=== PATIENT | female | born 1990 | race Caucasian/White ===

== ENCOUNTER 2018-10-11 09:07 | Emergency (ER) | payer SELFPAY ==
[2018-10-11 09:16] VITALS: BP 138/91
[2018-10-11] MEDS ORDERED: PANTOPRAZOLE SODIUM 40 MG VIAL IV ONE (09:30)
[2018-10-11] MEDS ORDERED: ONDANSETRON HCL INJ/PF 4 MG/2 ML SDV IV ONE (09:30)
[2018-10-11] MEDS ORDERED: THIAMINE HCL 100 MG, FOLIC ACID 1 MG in NORMAL SALINE 250 ML IV ONE (09:30)
[2018-10-11] MEDS ORDERED: NORMAL SALINE 1000 ML 1,000 ML IV ONE (09:30)
--- NOTE | 2018-10-11 09:30 | ER Document Report ---
ED Medical Screen (RME) - General Chief Complaint: Vomiting Stated Complaint: VOMITING Time Seen by Provider: 10/11/18 09:19 TRAVEL OUTSIDE OF THE [place] IN LAST 30 DAYS: No - HPI Notes: 10/11/18 09:34 28-year-old female to the emergency department with complaints of vomiting blood since early this morning. She states that she uses alcohol regularly typically back up. Her last drink was about an hour ago. She states that she is vomited before with alcohol but she is never had michel hematemesis before. She denies any fevers, chills, diarrhea, bloody diarrhea, headache. She does admit to chest pain particularly worse when she is vomiting and she feels a little bit more short of breath when she is vomiting. Patient smokes. She states that she "used to dabble and meth and heroin" but she has not used in some time. She states that her last shot of vodka was 1 hour ago. She states that walking helps her stop vomiting. She admits that she has gone through alcohol withdrawal before but she is unsure if she had a seizure when she is been going through alcohol withdrawal. Patient has a nontender belly on my exam she is obviously intoxicated. Will order labs and thiamine and folic acid as well as bolus of fluids as well as Zofran and Protonix. I performed a medical screening exam on this patient and will have me inside provider evaluate patient further. 10/11/18 09:36 - Related Data Smoking: Cigarettes Frequency of alcohol use: Heavy Drug Abuse: Heroin, Methamphetamine Allergies/Adverse Reactions: No Known Allergies Allergy (Verified 10/11/18 09:10) Past Medical History - General Information source: Patient - Social History Frequency of alcohol use: Heavy Drug Abuse: Heroin, Methamphetamine Physical Exam - Vital signs Vitals: Temp Pulse Resp BP Pulse Ox 98.4 F 121 H 18 138/91 H 97 10/11/18 09:11 10/11/18 09:11 10/11/18 09:11 10/11/18 09:11 10/11/18 09:11 Course - Vital Signs Vital signs: Temp Pulse Resp BP Pulse Ox 98.4 F 121 H 18 138/91 H 97 10/11/18 09:11 10/11/18 09:11 10/11/18 09:11 10/11/18 09:11 10/11/18 09:11
[2018-10-11 09:45] LABS: APPEARANCE,URINE CLOUDY; BILIRUBIN,URINE NEGATIVE (NEGATIVE); COLOR,URINE YELLOW; GLUCOSE, URINE NEGATIVE (NEGATIVE); KETONES,URINE 80 mg/dL (NEGATIVE); LEUKOCYTE ESTERASE,URINE TRACE (NEGATIVE); NITRITE,URINE POSITIVE (NEGATIVE); PROTEIN,URINE 100 mg/dL (NEGATIVE); URINE SPECIFIC GRAVITY 1.019; UROBILINOGEN,URINE NEGATIVE mg/dL (<2.0)
--- NOTE | 2018-10-11 09:56 | ER Document Report ---
Entered by NASIM SEPULVEDA SCRIBE 10/11/18 0951 Acting as scribe for:EMILIANA FELIX MD ED GI/ - General Mode of Arrival: Ambulatory Information source: Patient TRAVEL OUTSIDE OF THE [place] IN LAST 30 DAYS: No <EMILIANA FELIX - Last Filed: 10/11/18 16:27> <BRENDA TURNER - Last Filed: 10/11/18 17:52> - General Chief Complaint: Vomiting Stated Complaint: VOMITING Time Seen by Provider: 10/11/18 09:19 Notes: 28-year-old intoxicated female who presents to the emergency department today with complaints of abdominal pain with associated vomit for the last day. Patient states that her vomit has been "dark red blood" from the start. Patient admits to being an alcoholic, stating she normally drinks about "10 a day". Patient's abdominal pain seems to be localized to the upper abdomen. (EMILIANA FELIX) - Related Data Allergies/Adverse Reactions: No Known Allergies Allergy (Verified 10/11/18 09:10) Past Medical History - General Information source: Patient - Social History Smoking Status: Current Every Day Smoker Cigarette use (# per day): Yes Frequency of alcohol use: Heavy Drug Abuse: Heroin, Methamphetamine Lives with: Family Family History: Reviewed & Not Pertinent Patient has suicidal ideation: No Patient has homicidal ideation: No <EMILIANA FELIX - Last Filed: 10/11/18 16:27> Review of Systems - Review of Systems Constitutional: No symptoms reported EENT: No symptoms reported Cardiovascular: No symptoms reported Respiratory: No symptoms reported Gastrointestinal: See HPI, Abdominal pain, Nausea, Vomiting, Blood in vomit Genitourinary: No symptoms reported Female Genitourinary: No symptoms reported Musculoskeletal: No symptoms reported Skin: No symptoms reported Hematologic/Lymphatic: No symptoms reported Neurological/Psychological: No symptoms reported -: Yes All other systems reviewed and negative <EMILIANA FELIX - Last Filed: 10/11/18 16:27> Physical Exam <EMILIANA FELIX - Last Filed: 10/11/18 16:27> - Vital signs Vitals: Temp Pulse Resp BP Pulse Ox 98.4 F 121 H 18 138/91 H 97 10/11/18 09:11 10/11/18 09:11 10/11/18 09:11 10/11/18 09:11 10/11/18 09:11 - Notes Notes: Physical Exam: General: Alert, intoxicated. Wearing glasses. HEENT: Normocephalic. Atraumatic. PERRL. Extraocular movements intact. Oropharynx clear. Neck: Supple. Non-tender. Respiratory: No respiratory distress. Clear and equal breath sounds bilaterally. Cardiovascular: Regular rate and rhythm. Abdominal: Mild upper abdominal tenderness with palpation. No distension. Normal Bowel Sounds. Back: No gross abnormalities. Extremities: Moves all four extremities. Upper extremities: Normal inspection. Normal ROM. Lower extremities: Normal inspection. No edema. Normal ROM. Neurological: Normal cognition. AAOx4. Normal speech. Psychological: Normal affect. Normal Mood. Skin: Warm. Dry. Multiple tattoos. (EMILIANA FELIX) Course - Laboratory Result Diagrams: 10/11/18 09:56 10/11/18 09:56 - EKG Interpretation by Al EKG shows normal: Sinus rhythm, Gleason, Intervals, QRS Complexes, ST-T Waves Rate: Normal - 81 Rhythm: NSR Voltage: Consistant with LVH - Transfer of Care Care transferred to following provider: Dr. Turner <EMILIANA FELIX - Last Filed: 10/11/18 16:27> - Laboratory Result Diagrams: 10/11/18 09:56 10/11/18 09:56 <BRENDA TURNER - Last Filed: 10/11/18 17:52> - Re-evaluation Re-evalutation: 10/11/18 13:51 The patient has not had any vomiting since she got here. At this time she is hungry wanting to eat. Her initial hemoglobin is 15.2 with hematocrit of 43.7, her initial alcohol level is 409mg%. It will be after midnight before her alcohol level approaches a level of 100mg%. She does have a sister but that person lives in [place], the nurse tells me that the patient's boyfriend is also an alcoholic, therefore he is not a reliable sober person to come pick her up. (EMILIANA FELIX) 10/11/18 17:47 I took over the patient at approximately [address] Morales. At this time patient's significant other has arrived. He states he is comfortable taking the patient home. Patient is smiling and talkative in the room. She has no homicidal or suicidal ideation. She is very cheerful. She is pleasant and appropriate. She does not in any way appear intoxicated. Vital signs are unremarkable. She states that she will seek intervention to help control her alcohol use. She states she does feel going home with her significant other is an appropriate disposition. Her significant other also states that he is willing to do this. They both state the patient is going to seek outpatient treatment for the alcohol abuse. (BRENDA TURNER) - Vital Signs Vital signs: Temp Pulse Resp BP Pulse Ox 98.4 F 121 H 18 138/91 H 97 10/11/18 09:11 10/11/18 09:11 10/11/18 09:11 10/11/18 09:11 10/11/18 09:11 - Laboratory Laboratory results interpreted by me: 10/11/18 10/11/18 10/11/18 09:20 09:56 09:56 MCV 98 H MCH 34.0 H Chloride 96 L AST 133 H Total Protein 8.6 H Albumin 5.2 H Urine Protein 100 H Urine Ketones 80 H Urine Nitrite POSITIVE H Ur Leukocyte Esterase TRACE H Serum Alcohol 409 H* - Transfer of Care Notes: 10/11/18 16:28 Patient's alcohol level will approach 100mg% sometime after midnight, tonight. She could be discharged home earlier if she can find a sober person to come pick her up. She has been here over 6 hours without any vomiting. Will repeat her CBC to be sure there is not a significant drop in the hemoglobin. (EMILIANA FELIX) Discharge <EMILIANA FELIX - Last Filed: 10/11/18 16:27> <BRENDA TURNER - Last Filed: 10/11/18 17:52> - Discharge Clinical Impression: Methamphetamine abuse Acute alcohol intoxication with alcoholism Qualifiers: Complication of substance-induced condition: with unspecified complication Qualified Code(s): F10.229 - Alcohol dependence with intoxication, unspecified Condition: Stable Disposition: HOME, SELF-CARE Instructions: Acute Alcohol Intoxication ([facility]) Prescriptions: Chlordiazepoxide HCl [Librium 25 mg Capsule] 1 cap PO QID 5 Days #20 capsule Referrals: SD WALKER MD [COMMUNITY BASED STAFF] - Follow up as needed Scribe Attestation: 10/11/18 09:57 I personally performed the services described in the documentation, reviewed and edited the documentation which was dictated to the scribe in my presence, and it accurately records my words and actions. (EMILIANA FELIX) I personally performed the services described in the documentation, reviewed and edited the documentation which was dictated to the scribe in my presence, and it accurately records my words and actions.
--- NOTE | 2018-10-11 09:58 | RADIOLOGY REPORT (SQ) ---
EXAM DESCRIPTION: CHEST SINGLE VIEW COMPLETED DATE/TIME: 10/11/2018 9:45 am REASON FOR STUDY: vomiting, chest pain COMPARISON: None. NUMBER OF VIEWS: One view. TECHNIQUE: Single frontal radiographic image of the chest acquired. LIMITATIONS: None. FINDINGS: LUNGS AND PLEURA: Stable appearance. MEDIASTINUM AND HILAR STRUCTURES: Stable heart size and mediastinal structures. HEART AND VASCULAR STRUCTURES: Stable appearance. SUPPORT DEVICES: Appropriate location without change. BONES: No acute findings. OTHER: No other significant finding. IMPRESSION: STABLE APPEARANCE OF THE CHEST. SUPPORT DEVICES UNCHANGED. TECHNICAL DOCUMENTATION: JOB ID: [id number] [employer]- All Rights Reserved Reading location - IP/workstation name: [email or web address]
[2018-10-11 10:12] LABS: URINE BARBITURATES SCREEN UNCONFIRMED POSITIVE; URINE BENZODIAZEPINES SCREEN NEGATIVE; URINE COCAINE SCREEN NEGATIVE; URINE MARIJUANA (THC) SCREEN NEGATIVE; URINE METHADONE SCREEN NEGATIVE; URINE PHENCYCLIDINE SCREEN NEGATIVE
[2018-10-11 10:15] LABS: ABSOLUTE LYMPHOCYTES (AUTO) 2.1 10^3/uL (0.5-4.7); ABSOLUTE MONOCYTES (AUTO) 0.3 10^3/uL (0.1-1.4); ABSOLUTE NEUT (AUTO) 2.4 10^3/uL (1.7-8.2); HEMATOCRIT 43.7 % (36.0-47.0); HEMOGLOBIN 15.2 g/dL (12.0-15.5); LYMPHOCYTES % (AUTO) 44.4 % (13-45); MEAN CORPUSCULAR HGB CONC 34.7 g/dL (32.0-36.0); MEAN CORPUSCULAR VOLUME 98 fl (80-97); MONOCYTES % (AUTO) 5.7 % (3-13); PLATELET COUNT 237 10^3/uL (150-450); RED BLOOD COUNT 4.45 10^6/uL (3.72-5.28); RED CELL DISTRIBUTION WIDTH 12.9 % (11.5-14.0); SEGMENTED NEUTROPHILS % (AUTO) 48.9 % (42-78); TOTAL CELLS COUNTED % (AUTO) 100 %; WHITE BLOOD COUNT 4.8 10^3/uL (4.0-10.5)
[2018-10-11 10:30] LABS: PROTHROMBIN TIME 12.2 SEC (11.4-15.4)
[2018-10-11 10:36] LABS: ALBUMIN 5.2 g/dL (3.5-5.0); ALKALINE PHOSPHATASE 75 U/L (38-126); ASPARTATE AMINO TRANSFERASE 133 U/L (14-36); BILIRUBIN,DIRECT 0.4 mg/dL (0.0-0.4); BILIRUBIN,TOTAL 0.4 mg/dL (0.2-1.3); BLOOD UREA NITROGEN 12 mg/dL (7-20); CALCIUM 9.4 mg/dL (8.4-10.2); GLUCOSE 81 mg/dL (75-110); POTASSIUM 4.6 mmol/L (3.6-5.0); TOTAL PROTEIN 8.6 g/dL (6.3-8.2)
[2018-10-11 10:52] LABS: ANION GAP 19 (5-19); CARBON DIOXIDE 28 mmol/L (22-30); CHLORIDE 96 mmol/L (98-107)
[2018-10-11 11:19] LABS: ALCOHOL 409 mg/dL (NONE DETECTED)
--- NOTE | 2018-10-11 13:19 | EKG REPORT ---
SEVERITY:- ABNORMAL ECG - SINUS RHYTHM PROBABLE LEFT VENTRICULAR HYPERTROPHY : Confirmed by: Les Sam MD 11-Oct-2018 13:18:43
[2018-10-11] MEDS ORDERED: NICOTINE 14 MG/24 HR PATCH.TD24 TD ONE (14:33)
== END 2018-10-11 18:12 | disposition home or self-care (01) ==
LOC: ER 09:07
DX: F19.10 Other psychoactive substance abuse, uncomplicated (principal); F10.229 Alcohol dependence with intoxication, unspecified; R10.9 Unspecified abdominal pain; R11.10 Vomiting, unspecified; R10.10 Upper abdominal pain, unspecified; F17.210 Nicotine dependence, cigarettes, uncomplicated
CPT/HCPCS: 93005; 99284; 96375; 96365; 86900; 86901; 36415; 87086; 86850; 80307 ×2; 83690; 83735; 84703; 85025; 85610; 87088; 80053; 81001; 84484; 87186; 71045; 93010; J3490; S0164; J3411; J2405; J7030; J7050

== ENCOUNTER 2018-10-23 13:04 | Emergency (ER) | payer OTHER ==
[2018-10-23] MEDS ORDERED: IBUPROFEN 600 MG TABLET PO ONE (15:21)
[2018-10-23] MEDS ORDERED: LIDOCAINE 2% VISCOUS SOLN 20 ML UDCUP PO ONE (15:21)
--- NOTE | 2018-10-23 15:26 | ER Document Report ---
HPI - HPI Patient complains to provider of: tooth pain Time Seen by Provider: 10/23/18 15:08 Pain Level: 4 Context: Generally healthy 28-year-old female presents to the emergency department with chief complaint of tooth pain of the #17 tooth off and on for the past few weeks. Patient states that the pain radiates to her jaw and down her neck, denies trismus, denies fevers or chills, denies purulent discharge, denies any airway distress or obstruction. Patient is able to swallow and drink without difficulty. - REPRODUCTIVE LMP: 1 week ago Reproductive: DENIES: : Past Medical History - Social History Smoking Status: Current Every Day Smoker Family History: Reviewed & Not Pertinent Renal/ Medical History: Denies: Hx Peritoneal Dialysis Vertical Provider Document - CONSTITUTIONAL Notes: PHYSICAL EXAMINATION: Reviewed vital signs and charting by RN GENERAL: Alert, interacts well. No acute distress. HEAD: Normocephalic, atraumatic. EYES: Pupils equal and round. Extraocular movements intact. ENT: Oral mucosa moist, tongue midline. Mild inflammation of the gingiva surrounding the #17 tooth, tenderness when percussing the #17 tooth eliciting pain NECK: Full range of motion. Trachea midline. EXTREMITIES: Moves all 4 extremities spontaneously. No edema, No cyanosis. PSYCH: Normal affect, normal mood. SKIN: Warm, dry, normal turgor. No rashes or lesions noted. - INFECTION CONTROL TRAVEL OUTSIDE OF THE [place] IN LAST 30 DAYS: No Course - Re-evaluation Re-evalutation: 10/23/18 15:25 Presentation is most consistent with likely an infected tooth. Airway is patent. Vitals within normal limits. Patient is able swallow without any difficulty. There is no significant facial swelling. No evidence of Ganga angina, apical abscess, or airway obstruction. Patient will be started on antibiotics. I've instructed to follow-up with dentistry as earliest ability f or definitive management. At this time will discharge with return precautions and follow-up recommendations. Verbal discharge instructions given a the bedside and opportunity for questions given. Medication warnings reviewed. Patient is in agreement with this plan and has verbalized understanding of return precautions and the need for primary care follow-up in the next 24-72 hours. - Vital Signs Vital signs: Temp Pulse Resp BP Pulse Ox 97.8 F 65 18 111/69 97 10/23/18 13:22 10/23/18 13:22 10/23/18 13:22 10/23/18 13:22 10/23/18 13:22 Discharge - Discharge Clinical Impression: Tooth infection, Tooth pain Condition: Good Disposition: HOME, SELF-CARE Additional Instructions: You are seen in the emergency department this afternoon for tooth pain and what appears to be a mild infection of your gums. There is no obvious purulent drainage coming from your gums or tooth but we are going to start you on a short course of penicillin that you will take 1 tablet twice a day for 1 week. I have also given you the information for a couple of dental clinics that are free and or sliding scale. Please follow-up with them. It is very important that you follow-up with a dentist for definitive care. Please return if you develop fever greater than 101, swelling in your face, vomiting, difficulty breathing or swallowing, or any other symptoms that are concerning to you. For pain you should take ibuprofen 600 mg every 6 hours as needed. Prescriptions: Penicillin V Potassium [Penicillin Vk 500 mg Tablet] 500 mg PO BID #14 tablet
[2018-10-23 15:36] VITALS: BP 124/78
== END 2018-10-23 15:30 | disposition home or self-care (01) ==
LOC: ER 13:04
DX: K04.7 Periapical abscess without sinus (principal); K05.10 Chronic gingivitis, plaque induced; K08.89 Other specified disorders of teeth and supporting structures; F17.200 Nicotine dependence, unspecified, uncomplicated
CPT/HCPCS: 99282; J3490